=== PATIENT | female | born 1975 | race Caucasian/White ===

== ENCOUNTER 2022-03-24 15:18 | Outpatient (CLI) | payer BC, SELFPAY ==
--- NOTE | 2022-03-24 | ECG_ITS ---
Measurements Intervals [place] Rate: 82 P: 33 TN: 178 QRS: 2 QRSD: 93 T: 5 QT: 360 QTc: 421 Interpretive Statements SINUS RHYTHM VOLTAGE CRITERIA FOR LVH BORDERLINE ECG NO PREVIOUS ECG AVAILABLE FOR COMPARISON Electronically Signed On 03-24-2022 15:57:33 [employer]TIC[employer]ING [employer] WORK[employer] by Geo Topete D.O.
== END 2022-03-24 15:19 | disposition home or self-care (01) ==
PROVIDERS: PCP Family Medicine; Visit Provider Nurse Practitioner
DX: E66.9 Obesity, unspecified (principal)
CPT/HCPCS: 93005